=== PATIENT | male | born 1945 | race Caucasian/White ===

== ENCOUNTER 2022-05-18 14:46 | Emergency (ER) | payer MEDICARE, OTHER ==
[~2022-05-18] VITALS: Ht 170.2 cm; Wt 102.9 kg
--- NOTE | 2022-05-18 15:09 | ED GI ---
General Chief Complaint: Abdominal/GI Problems Stated Complaint: HEMATEMESIS; NAUSEA Nursing Triage Note: Patient reports he has had some mild nausea for 2 weeks. He states he began having generalized abdominal pain around 2 am this morning. He states he has been making himself vomit to make himself feel better and has been vomiting dark red blood. He states he has a history of a duodenal ulcer and his symptoms now are similar to what he has had in the past. History of Present Illness Date Seen by Provider: May 18, 2022 Time Seen by Provider: 15:03 Initial Comments 77-year-old male with PMH of HTN/DM 2/duodenal ulcer 60 years ago, is here with complaints of nausea and abdominal pain which has been going on for the past 2 weeks. The abdominal pain has been intermittent but today beginning at 2 AM in the morning, patient has been having an increase intensity in the abdominal pain which is generalized. Patient states that he has been self inducing vomiting over the past 2 weeks since that alleviates the pain and makes him feel better for about 15 to 30 minutes after he does that. He also notices that the vomitus has bright red to maroon-colored blood. Patient last had a bowel movement yesterday but he has not looked at the color of his stool yesterday or the past few days. Patient states stool consistency is normal. Patient states that he eats 1-2 meals a day only when he gets hungry. Denies fever or chills, chest pain, shortness of breath, palpitations, constipation, diarrhea, acid reflux, dysuria or hematuria. Allergies and Home Medications Allergies Coded Allergies: Sulfa (Sulfonamide Antibiotics) (Verified Allergy, Unknown, 05/18/22) Patient Home Medication List Home Medication List Reviewed: Yes Review of Systems Review of Systems Constitutional: no symptoms reported EENTM: No Symptoms Reported Respiratory: No Symptoms Reported Cardiovascular: No Symptoms Reported Gastrointestinal: See HPI, Abdominal Pain, Nausea, Poor Appetite, Vomiting Genitourinary: No Symptoms Reported Musculoskeletal: no symptoms reported Skin: no symptoms reported Psychiatric/Neurological: No Symptoms Reported Endocrine: No Symptoms Reported Hematologic/Lymphatic: No Symptoms Reported Past Kqvkipa-Ykbnbx-Ufwcwj Hx Patient Social History Tobacco Use?: No Substance use?: No Alcohol Use?: No Pt feels they are or have been: No Past Medical History Surgery/Hospitalization HX: duodenal ulcer, HTN, enlarged prostate Physical Exam Vital Signs Vital Signs - First Documented 05/18/22 14:52 Temp 36.0 Pulse 86 Resp 17 B/P (MAP) 166/74 (104) Pulse Ox 96 O2 Delivery Room Air Capillary Refill : Less Than 3 Seconds Height/Weight/BMI Height: '" Weight: lbs. oz. kg; 35.00 BMI Method: General Appearance: WD/WN, mild distress HEENT: PERRL/EOMI, normal ENT inspection (Patient has a hearing aid in his left ear) Neck: non-tender, full range of motion, supple Respiratory: chest non-tender, lungs clear, normal breath sounds, no respiratory distress Cardiovascular: regular rate, rhythm Gastrointestinal: normal bowel sounds, soft, no organomegaly, tenderness (Gene ralized abdominal pain although no specific point tenderness noted because patient was not having pain at the time of exam. Patient states that the pain is intermittent comes and goes.) Back: normal inspection, no CVA tenderness, no vertebral tenderness Neurologic/Psychiatric: no motor/sensory deficits, alert, normal mood/affect, oriented x 3 Skin: normal color Lymphatic: no adenopathy Focused Exam Lactate Level 05/18/22 15:00: Lactic Acid Level 2.07*H Lactic Acid Level Laboratory Tests Test 05/18/22 15:00 Lactic Acid Level 2.07 MMOL/L (0.50-2.00) *H Progress/Results/Core Measures Results/Orders Lab Results Laboratory Tests Test 05/18/22 15:00 05/18/22 17:10 Range/Units White Blood Count 11.6 H 4.3-11.0 10^3/uL Red Blood Count 4.74 4.30-5.52 10^6/uL Hemoglobin 13.6 13.3-17.7 g/dL Hematocrit 40 40-54 % Mean Corpuscular Volume 85 80-99 fL Mean Corpuscular Hemoglobin 29 25-34 pg Mean Corpuscular Hemoglobin Concent 34 32-36 g/dL Red Cell Distribution Width 13.2 10.0-14.5 % Platelet Count 214 130-400 10^3/uL Mean Platelet Volume 11.2 9.0-12.2 fL Immature Granulocyte % (Auto) 0 % Neutrophils (%) (Auto) 90 H 42-75 % Lymphocytes (%) (Auto) 6 L 12-44 % Monocytes (%) (Auto) 3 0-12 % Eosinophils (%) (Auto) 0 0-10 % Basophils (%) (Auto) 0 0-10 % Neutrophils # (Auto) 10.5 H 1.8-7.8 10^3/uL Lymphocytes # (Auto) 0.7 L 1.0-4.0 10^3/uL Monocytes # (Auto) 0.4 0.0-1.0 10^3/uL Eosinophils # (Auto) 0.0 0.0-0.3 10^3/uL Basophils # (Auto) 0.0 0.0-0.1 10^3/uL Immature Granulocyte # (Auto) 0.0 0.0-0.1 10^3/uL Neutrophils % (Manual) 85 % Lymphocytes % (Manual) 8 % Monocytes % (Manual) 5 % Band Neutrophils 2 % Platelet Estimate NORMAL Blood Morphology Comment NORMAL Prothrombin Time 13.5 12.2-14.7 SEC INR Comment 1.0 0.8-1.4 Activated Partial Thromboplast Time 27 24-35 SEC Sodium Level 134 L 135-145 MMOL/L Potassium Level 4.1 3.6-5.0 MMOL/L Chloride Level 95 L 98-107 MMOL/L Carbon Dioxide Level 24 21-32 MMOL/L Anion Gap 15 H 5-14 MMOL/L Blood Urea Nitrogen 22 H 7-18 MG/DL Creatinine 0.99 0.60-1.30 MG/DL Estimat Glomerular Filtration Rate 78 BUN/Creatinine Ratio 22 Glucose Level 339 H 70-105 MG/DL Lactic Acid Level 2.07 *H 0.50-2.00 MMOL/L Calcium Level 10.5 H 8.5-10.1 MG/DL Corrected Calcium 10.1 8.5-10.1 MG/DL Magnesium Level 1.6 1.6-2.4 MG/DL Total Bilirubin 0.6 0.1-1.0 MG/DL Aspartate Amino Transf (AST/SGOT) 21 5-34 U/L Alanine Aminotransferase (ALT/SGPT) 17 0-55 U/L Alkaline Phosphatase 103 40-136 U/L Troponin I < 0.30 <0.30 NG/ML Total Protein 8.0 6.4-8.2 GM/DL Albumin 4.5 3.2-4.5 GM/DL Lipase 25 8-78 U/L Urine Color YELLOW Urine Clarity CLEAR Urine pH 5.5 5-9 Urine Specific [place] <=1.005 1.016-1.022 Urine Protein TRACE H NEGATIVE Urine Glucose (UA) 3+ H NEGATIVE Urine Ketones 2+ H NEGATIVE Urine Nitrite NEGATIVE NEGATIVE Urine Bilirubin NEGATIVE NEGATIVE Urine Urobilinogen 0.2 < = 1.0 MG/DL Urine Leukocyte Esterase NEGATIVE NEGATIVE Urine RBC (Auto) TRACE-I H NEGATIVE Urine RBC RARE /HPF Urine WBC NONE /HPF Urine Squamous Epithelial Cells RARE /HPF Urine Crystals NONE /LPF Urine Bacteria NEGATIVE /HPF Urine Casts NONE /LPF Urine Mucus NEGATIVE /LPF Urine Culture Indicated NO My Orders Orders - HELIO HERNANDEZ MD Cbc With Automated Diff (05/18/22 15:09) Comprehensive Metabolic Panel (05/18/22 15:09) Lactic Acid Analyzer (05/18/22 15:09) Lipase (05/18/22 15:09) Magnesium (05/18/22 15:09) Ua Culture If Indicated (05/18/22 15:09) Troponin I Fs (05/18/22 15:09) Occult Blood Stool (05/18/22 15:10) Fecal Occult Bedside (05/18/22 15:10) Ct Abdomen/Pelvis W (05/18/22 15:11) Chest 1 View Ap/Pa Only (05/18/22 15:11) Protime With Inr (05/18/22 15:12) Partial Thromboplastin Time (05/18/22 15:12) Ondansetron Injection (Zofran Injectio (05/18/22 15:15) Famotidine Injection (Pepcid Injection) (05/18/22 15:15) Ed Iv/Invasive Line Start (05/18/22 15:15) Manual Differential (05/18/22 15:00) Pantoprazole Injection (Protonix Injecti (05/18/22 15:15) Ns (Ivpb) (Sodium C... W/Pantoprazole In (05/18/22 15:19) Iohexol Injection (Omnipaque 350 Mg/Ml 1 (05/18/22 16:00) Received Contrast (Hold Metformin- Contr (05/18/22 16:00) Ns (Ivpb) (Sodium Chloride 0.9% Ivpb Bag (05/18/22 16:00) Ceftriaxone 1 Gm Pre-Mix (Rocephin 1 Gm (05/18/22 17:30) Metronidazole 500mg/100ml Ivpb (Flagyl 5 (05/18/22 17:30) 1/2 Ns Iv Solution (0.45% Sodium Chlorid (05/18/22 17:23) Diphenhydramine Injection (Benadryl Inje (05/18/22 17:30) Acetaminophen Tablet/Caplet (Tylenol T (05/18/22 17:30) Medications Given in ED Current Medications Medications Dose Ordered Sig/Fatimah Route Start Time Stop Time Status Last Admin Dose Admin Ceftriaxone Sodium/Dextrose 50 ml @ 100 mls/hr ONCE ONCE IV 05/18/22 17:30 05/18/22 17:59 DC 05/18/22 17:54 100 MLS/HR Iohexol 100 ml ONCE ONCE IV 05/18/22 16:00 05/18/22 16:01 DC 05/18/22 16:05 80 ML Ondansetron HCl 4 mg ONCE ONCE IVP 05/18/22 15:15 05/18/22 15:17 DC 05/18/22 15:59 4 MG Pantoprazole 80 mg ONCE ONCE IV 05/18/22 15:15 05/18/22 15:20 DC 05/18/22 16:00 80 MG Sodium Chloride 100 ml ONCE ONCE IV 05/18/22 16:00 05/18/22 16:01 DC 05/18/22 16:05 100 ML Vital Signs/I&O 05/18/22 14:52 Temp 36.0 Pulse 86 Resp 17 B/P (MAP) 166/74 (104) Pulse Ox 96 O2 Delivery Room Air Blood Pressure Mean: 104 Progress Progress Note : Progress Note Patient left AMA. Risks and benefits explained in detail to patient but patient insists on going home 1. ABDOMINAL PAIN/ UPPER GI BLEED: CHOLECYSTITIS WITH CHOLELITHIASIS - CT ABD: Cholelithiasis with gallbladder distention and mild inflammatory stranding adjacent to the gallbladder. This does raise question of acute cholecystitis. Recommend correlation. If further imaging is needed, a Nuclear Medicine HIDA scan would be recommended. - CXR: normal - FOB: - CBC : Hemoglobin is stable at 13.6, and WBC is 11.6 with a left shift -Lactic acid is 2.07 - s. Glucose is 337 - UA : no infection - Lipase normal - 0.45 NS IVF bolus STAT due to elevated lactic acid - Ceftriaxone iv and Flagyl iv STAT - Will admit pt. Voicemail left for hospitalist, Dr Burnette. Pt is refusing admission and refusing transport by ambulance to [place] 2. POSSIBLE ADVERSE REACTION TO CONTRAST: - Pt developed a headache right after receiving contrast so started pt on fluids - Tylenol 650mg and gave prophylactic Benadryl 25mg iv - Monitoring in ER for any other allergic symptoms Diagnostic Imaging Diagonstic Imaging: Xray, CT Plain Films/CT/US/NM/MRI: chest, abdomen Comments [facility]. [place], [place] NAME: LASHONDA BUTLER [facility] REC#: [id number] PT STATUS: REG ER : 1945 PHYSICIAN: HELIO HERNANDEZ MD ADMIT DATE: 05/18/22/ER FS Draft Date of Exam:05/18/22 CT ABDOMEN/PELVIS W PROCEDURE: CT abdomen and pelvis with contrast. TECHNIQUE: Multiple contiguous axial images were obtained through the abdomen and pelvis after administration of intravenous contrast. Auto Exposure Controls were utilized during the CT exam to meet ALARA standards for radiation dose reduction. All CT scans use one or more of the following dose optimizing techniques: automated exposure control, MA and/or KvP adjustment based on patient size and exam type or iterative reconstruction. DATE: May 18, 2022. COMPARISON: None. INDICATION: 77-year-old male, nausea for 2 weeks. Abdominal pain. Vomiting dark red blood. FINDINGS: There is a 4 mm calcified left lower lobe granuloma. The heart is not enlarged. There is no identified pericardial effusion. There are multiple small calcifications in the liver and spleen, compatible with sequela of prior granulomatous disease. There is no identified liver lesion. The main, right, and left portal veins are patent. There is cholelithiasis. The gallbladder is distended. There is no identified pericholecystic fluid. There is very mild inflammatory stranding adjacent to the gallbladder. There is no intrahepatic or extrahepatic bile duct dilation. There is fatty replacement of the pancreatic parenchyma. The spleen is normal in size. The adrenal glands are unremarkable. There is a low-attenuation right renal lesion on axial image 86 which measures 2.0 cm in size. Internal attenuation is consistent with a benign cyst. The urinary collecting systems are not distended. There is no identified renal or ureteral stone. The prostate gland is mildly prominent in size and does indent on the posterior aspect of the urinary bladder. There is no CT apparent urinary bladder wall thickening. The intestinal tract is not distended. There is no evidence of acute appendicitis. There is no CT apparent wall thickening of bowel. There is no free intraperitoneal air. There is no drainable fluid collection. There is no free fluid in the abdomen or pelvis. There are atherosclerotic calcifications. There is no identified abnormally enlarged lymph node in the abdomen or pelvis which meets CT size criteria for adenopathy. There are multilevel degenerative changes of the spine. There is no identified acute bony abnormality. IMPRESSION: 1. Cholelithiasis with gallbladder distention and mild inflammatory stranding adjacent to the gallbladder. This does raise question of acute cholecystitis. Recommend correlation. If further imaging is needed, a Nuclear Medicine HIDA scan would be recommended. 2. No biliary ductal dilation. 3. No otherwise identified potential acute abnormality in the abdomen or pelvis. Dictated on workstation # [id number] Dict: 05/18/22 1613 Trans: 05/18/22 1621 [id number] Interpreted by: KARI MCDONALD MD Electronically signed by: [facility] [place] NAME: LASHONDA BUTLER [facility] REC#: [id number] PT STATUS: REG ER : 1945 PHYSICIAN: HELIO HERNANDEZ MD ADMIT DATE: 05/18/22/ER FS Signed Date of Exam:05/18/22 CHEST 1 VIEW AP/PA ONLY CHEST 1 VIEW AP/PA ONLY Indication: Upper gastrointestinal bleed Comparison: None available. Findings: No focal airspace disease in the visualized lungs. No pleural effusion or pneumothorax. Enlargement of cardiac silhouette. Impression: 1. No acute cardiopulmonary process by portable radiography. Dictated by: Dictated on workstation # [id number] Dict: 05/18/22 1549 Trans: 05/18/22 1550 [facility] [id number] Interpreted by: PEDRITO MONTERO MD Electronically signed by: PEDRITO MONTERO MD 05/18/22 1550 Departure Impression Primary Impression: Cholelithiasis Qualified Codes: K80.00 - Calculus of gallbladder with acute cholecystitis without obstruction Additional Impression: Cholecystitis Disposition: AGAINST MEDICAL ADVICE Condition: Against Medical Advice Admissions Decision to Admit Reason: Admit from ER (General) Decision to Admit/Date: May 18, 2022 Time/Decision to Admit Time: 17:25 Departure-Patient Inst. Referrals: JESSICA KING MD (PCP) Primary Care Physician HELIO HERNANDEZ MD May 18, 2022 15:09
[2022-05-18] MEDS ORDERED: FAMOTIDINE 20MG/2ML IV (PEPCID) IV STA (15:15)
[2022-05-18] MEDS ORDERED: PANTOPRAZOLE 40 MG (PROTONIX) VIAL IV ONE (15:15)
[2022-05-18] MEDS ORDERED: ONDANSETRON 4 MG/2 ML (SDV) Z0FRAN IVP ONE (15:15)
[2022-05-18 15:16] LABS: BASOPHILS % (AUTO) 0 % (0-10); EOSINOPHILS % (AUTO) 0 % (0-10); HEMATOCRIT 40 % (40-54); HEMOGLOBIN 13.6 g/dL (13.3-17.7); LYMPHOCYTES # (AUTO) 0.7 10^3/uL (1.0-4.0); LYMPHOCYTES % (AUTO) 6 % (12-44); MEAN CORPUSCULAR HEMOGLOBIN 29 pg (25-34); MEAN CORPUSCULAR HGB CONC 34 g/dL (32-36); MEAN CORPUSCULAR VOLUME 85 fL (80-99); MEAN PLATELET VOLUME 11.2 fL (9.0-12.2); MONOCYTES # (AUTO) 0.4 10^3/uL (0.0-1.0); MONOCYTES % (AUTO) 3 % (0-12); NEUTROPHILS # (AUTO) 10.5 10^3/uL (1.8-7.8); NEUTROPHILS % (AUTO) 90 % (42-75); PLATELET COUNT 214 10^3/uL (130-400); WHITE BLOOD COUNT 11.6 10^3/uL (4.3-11.0)
[2022-05-18] MEDS ORDERED: PANTOPRAZOLE INJECTION 200 MG in NS (IVPB) 100 ML IV STA (15:19)
[2022-05-18 15:33] LABS: PROTHROMBIN TIME PATIENT 13.5 SEC (12.2-14.7)
[2022-05-18 15:35] LABS: ALANINE AMINOTRANSFERASE 17 U/L (0-55); ALBUMIN 4.5 GM/DL (3.2-4.5); ALKALINE PHOSPHATASE 103 U/L (40-136); BILIRUBIN,TOTAL 0.6 MG/DL (0.1-1.0); BUN/CREATININE RATIO 22; CALCIUM 10.5 MG/DL (8.5-10.1); CARBON DIOXIDE 24 MMOL/L (21-32); CHLORIDE 95 MMOL/L (98-107); CREATININE SERUM 0.99 MG/DL (0.60-1.30); GFR ESTIMATED 78; GLUCOSE 339 MG/DL (70-105); LIPASE 25 U/L (8-78); MAGNESIUM 1.6 MG/DL (1.6-2.4); POTASSIUM 4.1 MMOL/L (3.6-5.0); SODIUM 134 MMOL/L (135-145)
--- NOTE | 2022-05-18 15:51 | Diagnostic Imaging Report ---
CHEST 1 VIEW AP/PA ONLY Indication: Upper gastrointestinal bleed Comparison: None available. Findings: No focal airspace disease in the visualized lungs. No pleural effusion or pneumothorax. Enlargement of cardiac silhouette. Impression: 1. No acute cardiopulmonary process by portable radiography. Dictated by: Dictated on workstation # [id number]
[2022-05-18] MEDS ORDERED: HOLD METFORMIN - RECEIVED CONTRAST 20 ML VIAL IV SCH (16:00)
[2022-05-18] MEDS ORDERED: NS 100 ML (IVPB) BAG IV ONE (16:00)
[2022-05-18] MEDS ORDERED: IOHEXOL 350 MG/ML 100 ML (OMNIPAQUE 350) VIAL IV ONE (16:00)
[2022-05-18 16:02] LABS: BAND NEUTROPHILS 2 %; LYMPHOCYTES % (MANUAL) 8 %; MONOCYTES % (MANUAL) 5 %; NEUTROPHILS % (MANUAL) 85 %; PLATELET ESTIMATE NORMAL
[2022-05-18 16:03] LABS: RBC MORPH NORMAL
--- NOTE | 2022-05-18 16:22 | Diagnostic Imaging Report ---
PROCEDURE: CT abdomen and pelvis with contrast. TECHNIQUE: Multiple contiguous axial images were obtained through the abdomen and pelvis after administration of intravenous contrast. Auto Exposure Controls were utilized during the CT exam to meet ALARA standards for radiation dose reduction. All CT scans use one or more of the following dose optimizing techniques: automated exposure control, MA and/or KvP adjustment based on patient size and exam type or iterative reconstruction. DATE: May 18, 2022. COMPARISON: None. INDICATION: 77-year-old male, nausea for 2 weeks. Abdominal pain. Vomiting dark red blood. FINDINGS: There is a 4 mm calcified left lower lobe granuloma. The heart is not enlarged. There is no identified pericardial effusion. There are multiple small calcifications in the liver and spleen, compatible with sequela of prior granulomatous disease. There is no identified liver lesion. The main, right, and left portal veins are patent. There is cholelithiasis. The gallbladder is distended. There is no identified pericholecystic fluid. There is very mild inflammatory stranding adjacent to the gallbladder. There is no intrahepatic or extrahepatic bile duct dilation. There is fatty replacement of the pancreatic parenchyma. The spleen is normal in size. The adrenal glands are unremarkable. There is a low-attenuation right renal lesion on axial image 86 which measures 2.0 cm in size. Internal attenuation is consistent with a benign cyst. The urinary collecting systems are not distended. There is no identified renal or ureteral stone. The prostate gland is mildly prominent in size and does indent on the posterior aspect of the urinary bladder. There is no CT apparent urinary bladder wall thickening. The intestinal tract is not distended. There is no evidence of acute appendicitis. There is no CT apparent wall thickening of bowel. There is no free intraperitoneal air. There is no drainable fluid collection. There is no free fluid in the abdomen or pelvis. There are atherosclerotic calcifications. There is no identified abnormally enlarged lymph node in the abdomen or pelvis which meets CT size criteria for adenopathy. There are multilevel degenerative changes of the spine. There is no identified acute bony abnormality. IMPRESSION: 1. Cholelithiasis with gallbladder distention and mild inflammatory stranding adjacent to the gallbladder. This does raise question of acute cholecystitis. Recommend correlation. If further imaging is needed, a Nuclear Medicine HIDA scan would be recommended. 2. No biliary ductal dilation. 3. No otherwise identified potential acute abnormality in the abdomen or pelvis. Dictated by: Dictated on workstation # [id number]
[2022-05-18 17:22] LABS: BILIRUBIN,URINE NEGATIVE (NEGATIVE); CLARITY,URINE CLEAR; COLOR,URINE YELLOW; GLUCOSE, URINE (UA) 3+ (NEGATIVE); KETONES,URINE 2+ (NEGATIVE); LEUKOCYTE ESTERASE ,URINE NEGATIVE (NEGATIVE); NITRITE,URINE NEGATIVE (NEGATIVE); PH,URINE 5.5 (5-9); PROTEIN,URINE TRACE (NEGATIVE)
[2022-05-18] MEDS ORDERED: 1/2 NS IV SOLUTION 1,000 ML IV STA (17:23)
[2022-05-18 17:26] LABS: BACTERIA,URINE NEGATIVE /HPF; RBC,URINE RARE /HPF; SQUAMOUS EPITHELIAL CELL,UR RARE /HPF
[2022-05-18] MEDS ORDERED: metroNIDAZOLE 500MG/100ML IVPB 100 ML IV ONE (17:30)
[2022-05-18] MEDS ORDERED: cefTRIAXone 1 GM PRE-MIX 50 ML IV ONE (17:30)
[2022-05-18] MEDS ORDERED: ACETAMINOPHEN 325 MG TABLET PO ONE (17:30)
[2022-05-18] MEDS ORDERED: diphenhydrAMINE 50 MG/ML INJ (BENADRYL) IV ONE (17:30)
[2022-05-18 19:00] VITALS: BP 179/71
[2022-05-21] MEDS ORDERED: ACHD5005 PO (14:31)
== END 2022-05-18 19:00 | disposition left against medical advice (07) ==
LOC: ER FS 14:50
DX: K80.10 Calculus of gallbladder with chronic cholecystitis without obstruction (principal)
CPT/HCPCS: 36415; 71045; 74177; 80053; 81000; 82274; 83605; 83690; 83735; 84484; 85007; 85027; 85610; 85730

== ENCOUNTER 2022-05-20 07:32 | Outpatient (CLI) | payer MEDICARE, OTHER ==
[~2022-05-20] VITALS: Ht 172.7 cm; Wt 102.1 kg
[2022-05-20] MEDS ORDERED: LISI1TAB48 PO (10:20)
[2022-05-20] MEDS ORDERED: METF-399 PO (10:20)
[2022-05-20] MEDS ORDERED: ASPI-808 PO (10:20)
[2022-05-20] MEDS ORDERED: BISO-3 PO (10:20)
[2022-05-20] MEDS ORDERED: TMSL.4C PO (10:20)
[2022-05-20] MEDS ORDERED: PIOG45TA65 PO (10:20)
[2022-05-21] MEDS ORDERED: ACHD5005 PO (14:31)
== END 2022-05-20 10:38 | disposition home or self-care (01) ==
LOC: PREOP 07:32
PROVIDERS: ATTEND Surgery
DX: Z01.818 Encounter for other preprocedural examination (principal)

== ENCOUNTER 2022-05-21 11:45 | Day surgery (SDC) | payer MEDICARE, OTHER ==
[2022-05-21] VITALS (12 sets, daily range): BP systolic 133–181; BP diastolic 62–79
[~2022-05-21] VITALS: Ht 172.7 cm; Wt 102.1 kg
[~2022-05-21 11:45] MED LIST: ASPI-808 PO; BISO-3 PO; LISI1TAB48 PO; METF-399 PO; PIOG45TA65 PO; TMSL.4C PO
[2022-05-21] MEDS ORDERED: BUPIVACAINE 0.5% 30 ML (SENSORCAINE) VIAL ONE (12:06)
--- NOTE | 2022-05-21 12:10 | Progress Note-Pre Operative ---
Pre-Operative Progress Note Date of Available H&P: May 19, 2022 Date H&P Reviewed: May 21, 2022 Time H&P Reviewed: 12:10 History & Physical: H&P Reviewed, Patient Examed, No changes noted Pre-Operative Diagnosis: cholelithiasis cholecystitis TRACE FRANKEL DO May 21, 2022 12:10
[2022-05-21] MEDS ORDERED: NS (IVPB) 50 ML ONE (12:17)
[2022-05-21] MEDS ORDERED: ceFAZolin INJECTION 2,000 MG ONE (12:17)
[2022-05-21] MEDS ORDERED: GLYCOPYRROLATE 0.2 MG/ML (ROBINUL) 2 ML VIAL ONE (12:22)
[2022-05-21] MEDS ORDERED: LIDOCAINE PF 2% 5 ML (XYLOCAINE) VIAL ONE (12:22)
[2022-05-21] MEDS ORDERED: ONDANSETRON 4 MG/2 ML (SDV) Z0FRAN ONE (12:22)
[2022-05-21] MEDS ORDERED: ROCURONIUM 50 MG/5 ML (ZEMURON) VIAL IV ONE (12:22)
[2022-05-21] MEDS ORDERED: NEOSTIGMINE (BLOXIVERZ ) 1 MG/1ML 10 ML VIAL ONE (12:22)
[2022-05-21] MEDS ORDERED: fentaNYL INJ 100 MCG/2 ML AMP ONE (12:22)
[2022-05-21] MEDS ORDERED: proPOfol 200 MG/20 ML (DIPRIVAN) VIAL IV ONE (12:22)
[2022-05-21] MEDS ORDERED: ceFAZolin INJECTION 2,000 MG in NS (IVPB) 50 ML IV ONE (13:00)
[2022-05-21] MEDS ORDERED: LACTATED RINGERS 1,000 ML IV PRN (13:00)
[2022-05-21] MEDS ORDERED: BUP/EPI 0.5% 1:200,000 (SENSORCAINE) 30 ML VIAL INJ ONE (13:14)
[2022-05-21] MEDS ORDERED: IOHEXOL 300 MG/ML 100 ML (OMNIPAQUE 300) VIAL INJ ONE (13:15)
[2022-05-21] MEDS ORDERED: GLUCAGON EMERGENCY 1 MG/KIT ONE (13:29)
[2022-05-21] MEDS ORDERED: GLUCAGON EMERGENCY 1 MG/KIT IV ONE (13:45)
[2022-05-21] MEDS ORDERED: SEVOFLURANE (ULTANE) 15 ML INHAL SOLN ONE (13:58)
[2022-05-21] MEDS ORDERED: HYDROmorphone 2 MG/ML VIAL (DILAUDID) IV ONE (14:30)
[2022-05-21] MEDS ORDERED: morphine INJ 10 MG/ML 1ML (SYR OR VIAL) IVP ONE (14:30)
[2022-05-21] MEDS ORDERED: ONDANSETRON 4 MG/2 ML (SDV) Z0FRAN IVP PRN (14:30)
[2022-05-21] MEDS ORDERED: ACHD5005 PO (14:31)
--- NOTE | 2022-05-21 14:34 | Discharge Inst-Simple/Standard ---
Discharge Inst-Standard Discharge Medications New, Converted or Re-Newed RX: Transmitted to Pharmacy Patient Instructions/Follow Up Plan of Care/Instructions/FU: Finish Antibiotics. Dr. Hall will notify you of time of ERCP on Tuesday. Dr. Cody 2 weeks. Do not eat or drink anything after Tuesday evening. Activity as Tolerated: No Discharge Diet: Regular Diet Other Inst to Patient Follow up Appt: Dr. Hall will notify you of time of ERCP on Tuesday. Do not eat or drink anything after Tuesday evening. Dr. Cody 2 weeks. Instructions: No lifting greater than 10 pounds. No strenuous activity. May shower in 24 hours, no tub bath or soaking. Use incentive spirometer at home as directed. No Smoking Skin/Wound Care: You have special glue over incision, it will fall off on it's own. You have a drain in keep track of how much drainage in 24 hr period. When it is less than 30 mL in [address] Cody's office to have it removed, as long as you have had the ERCP. Symptoms to Report: Appetite Changes, Extremity Discoloration, Numbness/Tingling, Swelling Increased, Bleeding Excessive, Eyesight Changes, Pain Increased, Urine Color Change, Constipation(Persistent), Fever over 101 degree F, Pain/Pressure in chest, Urinating Difficulty, Cough Up/Vomit Blood, Heart Beat Irreg/Pounding, Pain/Pressure in jaw, Vaginal Bleeding Increase, Cramps in feet or legs, Lightheadedness, Pain/Pressure in shoulder, Diarrhea(Persistent), Memory Changes Suddenly, Questions/Concerns, Weight gain consecutive days, Dizziness/Fainting, Nausea/Vomiting, Shortness of Breath, Weight gain over 2 pounds. If eyes or skin turn yellow notify physician. If questions or concerns contact your physician Or seek help at emergency department. TRACE CODY DO May 21, 2022 14:34
--- NOTE | 2022-05-21 14:40 | Progress Note-Post Operative ---
Post-Operative Progess Note Surgeon (s)/Curtain Stitcher (s) Surgeon TRACE FRANKEL DO Curtain Stitcher: Dr. Brown to assist in retraction dissection and closure. Pre-Operative Diagnosis cholelithiasis cholecystitis Post-Operative Diagnosis gangrenous gallbladder and cholelithiasis Procedure & Operative Findings Date of Procedure 05/21/22 Procedure Performed/Findings PROCEDURE: Laparoscopic cholecystectomy with intraoperative cholangiogram. COMPLICATIONS: None. PROCEDURE: The patient was taken to the operating suite and was prepped and draped in sterile fashion. A surgical pause was performed. Just superior to the umbilicus, a 12 mm incision was made. Dissection was taken down to the fascia, which was then scored and grasped with a Tessie and the abdomen was then entered. A 0 Vicryl suture was placed in a [id number] fashion and a Flores trocar was placed and secured. Pneumoperitoneum was achieved. A 5mm trochar place in the subxyphoid and 2 in the right upper quadrant. The gallbladder was distended and had to be decompressed. It was gangrenous It was then grasped and elevated and phlegmon was taken off the gallbladder bluntly. The cystic duct, and cystic artery were then dissected out. Clip was placed on the distal portion of the cystic duct which was then partially transected. An arrow catheter was inserted into the duct. The cholangiogram was then performed. Appears to have some particulate in duct work and contrast did not make its way into the duodenum. Glucagon was given and only a small amount of contrast was able to be seen in the duodenum. Catheter removed. Clips were placed on proximal portion of the cystic duct and then the duct was then transected. Clips were placed along the proximal and distal portion of the cystic artery which was then transected. Hook cautery was used to dissect the gallbladder from the gallbladder fossa achieving hemostasis. The gallbladder was placed in an Endobag and removed through the 12 mm trocar site. The abdomen was then reinspected. Copious amounts of irrigation were used to irrigate the abdomen and there were no signs of active bleeding. A piece of surgicel was placed in fossa. A [address] in under the liver and brought out through a 5 mm trochar and secured. Hemostasis had been achieved. The 12 mm fascial defect was then closed with 0 Vicryl suture that had been placed in a [id number] fashion. The abdomen was then desufflated, the trocars were removed. The abdomen was then washed and dried. The skin was then closed using 4-0 Monocryl in a subcuticular fashion. The abdomen was washed and dried and Skin Affix was place over incisions. Patient tolerated the procedure well without any complications and was taken to the recovery room in stable condition. Discussed with Dr. Hall who will arrange ERCP for Tuesday due to the sludge in the common bile duct. Anesthesia Type general Estimated Blood Loss Estimated blood loss (mL): minimal Specimens/Packing Specimens Removed gallbladder Packing: surgicel TRACE FRANKEL DO May 21, 2022 14:39
--- NOTE | 2022-05-21 14:53 | Anesthesia-General Post-Op ---
General Patient Condition Mental Status/LOC: Same as Preop Cardiovascular: Satisfactory Nausea/Vomiting: Absent Respiratory: Satisfactory Pain: Controlled Complications: Absent Post Op Complications Complications None Follow Up Care/Instructions Patient Instructions None needed. Anesthesia/Patient Condition Patient Condition Patient is doing well in PACU with no complaints other than abdominal pain, stable vital signs, no apparent adverse anesthesia problems. No complications reported per nursing. FE BENITEZ DO May 21, 2022 14:52
[2022-05-21] MEDS ORDERED: HYDROcodone/APAP 5 MG/325 MG (LORTAB) TAB ONE (15:35)
[2022-05-21] MEDS ORDERED: HYDROcodone/APAP 5 MG/325 MG (LORTAB) TAB PO ONE (15:45)
== END 2022-05-21 17:10 | disposition home or self-care (01) ==
LOC: SDC 11:45
PROVIDERS: ATTEND Surgery
DX: K80.12 Calculus of gallbladder with acute and chronic cholecystitis without obstruction (principal); K82.A1 Gangrene of gallbladder in cholecystitis; K82.8 Other specified diseases of gallbladder; E11.9 Type 2 diabetes mellitus without complications; E66.9 Obesity, unspecified; Z68.34 Body mass index [BMI] 34.0-34.9, adult; Z87.19 Personal history of other diseases of the digestive system; Z79.84 Long term (current) use of oral hypoglycemic drugs
CPT/HCPCS: 76000; 82947; 87081